=== PATIENT | male | born 1990 | race Caucasian/White ===

== ENCOUNTER 2017-10-01 17:22 | Emergency (ER) | payer OTHER ==
[2017-10-01] MEDS: LIDOCAINE 2% MDV 20 ML VIAL SC (18:45)
[2017-10-01] MEDS ORDERED: NEOSPORIN OINT 0.9 GM PKT (FLOOR STOCK) As Ordered (19:49)
== END 2017-10-01 20:21 | disposition home or self-care (01) ==
LOC: M ED 17:22
DX: S81.012A Laceration without foreign body, left knee, initial encounter (principal); W20.8XXA Other cause of strike by thrown, projected or falling object, initial encounter; Y92.019 Unspecified place in single-family (private) house as the place of occurrence of the external cause
CPT/HCPCS: 73564

== ENCOUNTER 2019-04-05 07:03 | Emergency (ER) | payer OTHER ==
[~2019-04-05] VITALS: Ht 175.3 cm; Wt 76.8 kg
[2019-04-05 07:03] VITALS: BP 124/79
[~2019-04-05 07:03] MED LIST: CLEO300C2 PO; DOXY-350 PO; MELO15TA28; TRAM50TA2 PO
[2019-04-05] MEDS ORDERED: ROBA750T4 PO (07:28)
[2019-04-05] MEDS ORDERED: KETO10TAB PO (07:28)
[2019-04-05] MEDS ORDERED: KETOROLAC 30 MG/ML VIAL (J1885) IM ONE (07:30)
== END 2019-04-05 07:54 | disposition home or self-care (01) ==
LOC: M ED 07:03
DX: S29.012A Strain of muscle and tendon of back wall of thorax, initial encounter (principal); M62.830 Muscle spasm of back; X50.0XXA Overexertion from strenuous movement or load, initial encounter; Y92.89 Other specified places as the place of occurrence of the external cause; F17.200 Nicotine dependence, unspecified, uncomplicated; Z88.5 Allergy status to narcotic agent
CPT/HCPCS: 96372; 99282; J1885

== ENCOUNTER 2021-08-02 13:41 | Emergency (ER) | payer OTHER ==
[~2021-08-02] VITALS: Ht 175.3 cm; Wt 81.7 kg
[~2021-08-02 13:41] MED LIST changes: +KETO10TAB PO; +ROBA750T4 PO
[2021-08-02 15:25] VITALS: BP 122/62
== END 2021-08-02 15:26 | disposition home or self-care (01) ==
LOC: M ED 13:41
DX: S90.32XA Contusion of left foot, initial encounter (principal); Y93.17 Activity, water skiing and wake boarding; Z88.6 Allergy status to analgesic agent; Z88.5 Allergy status to narcotic agent

== ENCOUNTER 2022-11-21 19:33 | Emergency (ER) | payer OTHER ==
[~2022-11-21] VITALS: Ht 175.3 cm; Wt 77.3 kg
[~2022-11-21 19:33] MED LIST changes: -DOXY-350 PO; +DOXY-444 PO
[2022-11-21] MEDS ORDERED: CEPHALEXIN 500 MG CAP PO ONE (20:45)
[2022-11-21] MEDS ORDERED: CEPH500C PO (20:47)
[2022-11-21 21:15] VITALS: BP 111/59; TEMP 98.6; O2SAT 96
== END 2022-11-21 21:20 | disposition home or self-care (01) ==
LOC: M ED 19:33
DX: S62.522B Displaced fracture of distal phalanx of left thumb, initial encounter for open fracture (principal); S61.012A Laceration without foreign body of left thumb without damage to nail, initial encounter; S60.112A Contusion of left thumb with damage to nail, initial encounter; W22.8XXA Striking against or struck by other objects, initial encounter; Y92.009 Unspecified place in unspecified non-institutional (private) residence as the place of occurrence of the external cause; Y93.89 Activity, other specified; Z88.6 Allergy status to analgesic agent; Z88.5 Allergy status to narcotic agent

== ENCOUNTER 2023-04-04 12:01 | Emergency (ER) | payer OTHER ==
[~2023-04-04] VITALS: Ht 175.3 cm; Wt 82.9 kg
[~2023-04-04 12:01] MED LIST changes: +CEPH500C PO
[2023-04-04 13:20] VITALS: BP 135/69; TEMP 98.1; O2SAT 97
== END 2023-04-04 13:23 | disposition home or self-care (01) ==
LOC: M ED 12:01
DX: S80.12XA Contusion of left lower leg, initial encounter (principal); Y92.019 Unspecified place in single-family (private) house as the place of occurrence of the external cause; Y93.01 Activity, walking, marching and hiking; Y99.9 Unspecified external cause status; W10.8XXA Fall (on) (from) other stairs and steps, initial encounter; F10.10 Alcohol abuse, uncomplicated; Z88.8 Allergy status to other drugs, medicaments and biological substances

== ENCOUNTER 2023-06-18 14:24 | Emergency (ER) | payer OTHER ==
[~2023-06-18] VITALS: Ht 175.3 cm; Wt 82.4 kg
[~2023-06-18 14:24] MED LIST changes: +DOXY-440 PO; -DOXY-444 PO
[2023-06-18 14:26] VITALS: BP 122/77; TEMP 98; O2SAT 98
[2023-06-18] MEDS ORDERED: NOXI1TAB PO (14:35)
== END 2023-06-18 16:04 | disposition left against medical advice (07) ==
LOC: M ED 14:24
DX: Z53.21 Procedure and treatment not carried out due to patient leaving prior to being seen by health care provider (principal)

== ENCOUNTER 2023-06-26 06:37 | Emergency (ER) | payer OTHER ==
[~2023-06-26] VITALS: Ht 175.3 cm; Wt 81.8 kg
[~2023-06-26 06:37] MED LIST changes: +NOXI1TAB PO
[2023-06-26] MEDS ORDERED: COLC0.6T47 PO (07:00)
[2023-06-26 07:08] VITALS: BP 116/65; TEMP 97.8; O2SAT 97
[2023-06-26] MEDS: COLCHICINE 0.6 MG TABLET PO ONE (07:09)
== END 2023-06-26 07:16 | disposition home or self-care (01) ==
LOC: M ED 06:37
DX: M10.9 Gout, unspecified (principal); F17.290 Nicotine dependence, other tobacco product, uncomplicated; F10.10 Alcohol abuse, uncomplicated; Z88.8 Allergy status to other drugs, medicaments and biological substances; Z88.5 Allergy status to narcotic agent; Z79.899 Other long term (current) drug therapy